=== PATIENT | male | born 1995 | race Caucasian/White ===

== ENCOUNTER 2018-03-10 13:47 | Emergency (ER) | payer BC, OTHER ==
[2018-03-10] MEDS ORDERED: Fluorescein 0.6 MG Ophth Strip EYERT ONE (14:17)
--- NOTE | 2018-03-10 14:31 | EDM.PDOC ---
ED HPI GENERAL MEDICAL PROBLEM - General Chief Complaint: Eye Problems Stated Complaint: R EYE INJURY Time Seen by Provider: 03/10/18 14:12 Source of Information: Reports: Patient History Limitations: Reports: No Limitations - History of Present Illness INITIAL COMMENTS - FREE TEXT/NARRATIVE: 22-year-old male presents for foreign body to the right eye. Reports discomfort prior to arrival in the ER. He did attempt to rinse it out but had difficulty removing it. States the foreign body is a piece of metal. He was cutting some metal when this occurred. He was not wearing any eye protection at this time. He reports some discomfort to the eye but no vision changes. No eye discharge. No headaches. Patient normally wears glasses. Onset: Today Right Eye Pain Score (Numeric/FACES): 2 - Related Data Allergies Allergy/AdvReac Type Severity Reaction Status Date / Time No Known Allergies Allergy Verified 03/10/18 13:54 Home Meds: Home Meds Erythromycin Base [Erythromycin 0.5% Ophth Oint] 1 applic OP Q6HR #1 tube [Rx] Past Medical History - Past Surgical History HEENT Surgical History: Reports: Tonsillectomy Social & Family History - Tobacco Use Smoking Status *Q: Never Smoker - Caffeine Use Caffeine Use: Reports: Coffee, Energy Drinks, Soda, Tea - Recreational Drug Use Recreational Drug Use: No ED ROS GENERAL - Review of Systems Review Of Systems: See Below HEENT: Reports: Eye Pain (right). Denies: Eye Discharge Neurological: Denies: Headache ED EXAM GENERAL W FULL EYE - Physical Exam Exam: See Below Exam Limited By: No Limitations General Appearance: Alert, WD/WN, No Apparent Distress Eye Exam: Right Eye: Corneal Abrasion (7 o'clock position), Foreign Body (7 o' clock position , removed with cotton swab), Bilateral Eye: EOMI, Normal Inspection, PERRL Visual Acuity (R) 20/: 25 Visual Acuity (L) 20/: 25 With Correction: Yes Eyelids: Right: Lid Everted for Exam, Bilateral: Normal Appearance Conjunctiva & Sclera: Bilateral: Normal Appearance Cornea Exam: Right: Foreign Body, Examined with Flourescein Extraocular Movements: Bilateral: Intact Pupils: Normal Accommodation Pupillary Reaction: Bilateral: Brisk Anterior Chamber: Bilateral: Normal Appearance Ears: Normal External Exam Nose: Normal Inspection Throat/Mouth: Normal Inspection, Normal Voice, No Airway Compromise Respiratory/Chest: No Respiratory Distress, Lungs Clear, Normal Breath Sounds Cardiovascular: Normal Peripheral Pulses, Regular Rate, Rhythm, No Murmur Neurological: Alert, Oriented, Normal Cognition, Normal Gait Psychiatric: Normal Affect, Normal Mood Skin Exam: Warm, Dry, Normal Color Course - Vital Signs Last Recorded V/S: Last Vital Signs Temp 97.2 F 03/10/18 13:54 Pulse 68 03/10/18 13:54 Resp 18 03/10/18 13:54 BP 146/98 H 03/10/18 13:54 Pulse Ox 100 03/10/18 13:54 - Orders/Labs/Meds Orders: Active Orders 24 hr Category Date Time Status Slit Lamp to Bedside [RC] ASDIRECTED Care 03/10/18 14:17 Active Vision Test [RC] ASDIRECTED Care 03/10/18 14:17 Active Meds: Medications Discontinued Medications Generic Name Dose Route Start Last Admin Trade Name Howieq PRN Reason Stop Dose Admin Fluorescein Sodium 0.6 mg 03/10/18 14:17 03/10/18 14:24 Ful-Georgette EYERT 03/10/18 14:18 0.6 mg ONETIME ONE Administration - Re-Assessments/Exams Free Text/Narrative Re-Assessment/Exam: 03/10/18 14:22 Metal foreign body removed with cotton swab. Patient tolerated well. He was given 3 drops of proparacaine and this provided adequate anesthesia. I examined with fluorescein and the slit lamp; a corneal abrasion was appreciated after the foreign body was removed. He will be placed on erythromycin ointment. Recommend follow-up with an eye doctor. Discharge instructions as documented. Departure - Departure Time of Disposition: 14:29 Disposition: Home, Self-Care 01 Condition: Fair Clinical Impression: Corneal abrasion, Eye foreign body - Discharge Information *PRESCRIPTION DRUG MONITORING PROGRAM REVIEWED*: No *COPY OF PRESCRIPTION DRUG MONITORING REPORT IN PATIENT CINDY: No Prescriptions: Erythromycin Base [Erythromycin 0.5% Ophth Oint] 1 applic OP Q6HR #1 tube Instructions: Corneal Abrasion, [id number] Referrals: PCP,None [Primary Care Provider] - Forms: ED Department Discharge Additional Instructions: Eye ointment as prescribed. Apply 1 cm ribbon to the right lower lid every 6 hours for 7 days unless otherwise instructed by your eye doctor. Follow-up with your eye doctor this week for recheck of your eye. [id number] Tylenol or Motrin as needed for discomfort. Please return to the ER if your symptoms change or worsen. - My Orders Last 24 Hours: My Active Orders 03/10/18 14:17 Slit Lamp to Bedside [RC] ASDIRECTED Vision Test [RC] ASDIRECTED - Assessment/Plan Last 24 Hours: My Active Orders 03/10/18 14:17 Slit Lamp to Bedside [RC] ASDIRECTED Vision Test [RC] ASDIRECTED
== END 2018-03-10 14:45 | disposition home or self-care (01) ==
LOC: JD.ED 13:47
DX: T15.01XA Foreign body in cornea, right eye, initial encounter (principal)
CPT/HCPCS: 65205; 65220; 99283-25